=== PATIENT | male | born 1965 | race Caucasian/White ===

== ENCOUNTER 2025-03-09 04:49 | Emergency (ER) | payer SELFPAY ==
[2025-03-09] MEDS ORDERED: FOLIC ACID 5 MG/ML VIAL ONE (05:17)
[2025-03-09] MEDS ORDERED: MULTIVITAMINS 10 ML VIAL (INJ) IV ONE (05:17)
[2025-03-09] MEDS ORDERED: THIAMINE 200 MG/2 ML INJ ONE (05:17)
[2025-03-09] MEDS ORDERED: NA CHLORIDE 0.9% 1,000 ML ONE (05:18)
[2025-03-09 05:21] LABS: Absolute Lymphocytes (CBC) 1.9 K/uL (0.7-4.9); Hematocrit 42.5 % (39.6-49.0); Hemoglobin 14.7 g/dL (13.6-17.9); MCH 33.1 pg (27.0-35.0); MCHC 34.5 g/dL (32.0-36.0); MCV 96.1 fL (80-100); MPV 7.5 fL (7.6-11.3); Nucleated RBC Absolute Count 0.0 (0-0); Nucleated Red Blood Cells % 0.2 % (0-0); RBC Red Blood Cell Count 4.42 M/uL (4.33-5.43); White Blood Count 3.70 thou/uL (4.3-10.9)
[2025-03-09 05:32] LABS: PT Prothrombin Time 10.9 SECONDS (10-13.0); PTT, Activated Partial Thromb 27.1 SECONDS (27.2-37.4); Protime INR 0.96
[2025-03-09 05:42] LABS: ALT/SGPT 61 U/L (16-61); AST/SGOT 54 U/L (15-37); Albumin 3.5 g/dL (3.4-5.0); Albumin/Globulin Ratio 0.8 (1.1-1.8); Alkaline Phosphatase 61 U/L (45-117); Anion Gap 8.1 mEq/L (5.0-15.0); BUN Blood Urea Nitrogen 7 mg/dL (7-18); Bilirubin Indirect, Calculated 0.3 mg/dL (0.2-0.8); Globulin 4.6 g/dL (2.3-3.5); Glucose Level 94 mg/dL (74-106); Lipase 70 U/L (13-75); NT PRO-BNP 167 pg/mL (<125); Potassium 3.1 mEq/L (3.5-5.1); Troponin High Sensitivity 16.6 pg/mL (<58.9)
[2025-03-09 05:57] LABS: Blood Morphology Comment NOT SEEN (NOT SEEN); Differential Total Cells Count 100; Segmented Neutrophils 29 % (40-80)
[2025-03-09] MEDS ORDERED: ONDANSETRON 4 MG/2 ML VIAL ONE (06:02)
[2025-03-09] MEDS ORDERED: MORPHINE 4 MG/ML SYR ONE (06:03)
--- NOTE | 2025-03-09 07:08 | RAD REPORT ---
EXAM: Angio Aorta For Dissection HISTORY: [facility] MAIN none chest pain Bed Name: 15 COMPARISON: None TECHNIQUE: Multiple contiguous axial images were obtained a CTA of the chest and abdomen with contras t per aortic dissection protocol. Sagittal and coronal 3-D MIP reformats were performed. One or more of the following dose reduction techniques were used: Automated exposure control, adjustment of the mA and kV according to patient size, and iterative reconstruction. Unless otherwise specified, incidental findings do not require dedicated imaging follow-up. FINDINGS: PULMONARY ARTERIES: Normal in caliber without filling defects to suggest pulmonary emboli. MEDIASTINUM: No hilar or mediastinal lymphadenopathy. LUNGS: No focal infiltrates or masses. PLEURAL SPACE: No pleural effusion or pneumothorax. LIVER: Unremarkable. KIDNEYS: Unremarkable. SPLEEN: Unremarkable. PANCREAS: Unremarkable. BOWEL: Colonic diverticulosis predominantly along the sigmoid, without acute diverticulitis. RETROPERITONEUM: No lymphadenopathy BONES: Degenerative changes in the spine. ASCENDING THORACIC AORTA: Normal caliber without evidence of dissection or aneurysmal dilatation. DESCENDING THORACIC AORTA: Normal caliber without evidence of dissection or aneurysmal dilatation. ABDOMINAL AORTA: Normal caliber without evidence of dissection or aneurysmal dilatation. Up to moderate mixed density plaque throughout the aorta most pronounced along the infrarenal abdomin al aorta. Patent, although with multifocal mild narrowing along the right more than left iliac vessels. CELIAC TRUNK: Patent. SMA: Patent DANNY: Patent RENAL ARTERIES: Bilateral single renal arteries without significant atherosclerotic disease IMPRESSION: No evidence of thoracic or abdominal aortic aneurysm or dissection. Other findings as above.
[2025-03-09] MEDS ORDERED: POTASSIUM CL SA 10 MEQ TAB PO ONE (07:24)
--- NOTE | 2025-03-09 07:49 | EDPHYS ---
Physician Documentation [facility] Name: Khris Joyner Age: 59 yrs Sex: Male : 1965 Arrival Date: 03/09/2025 Time: 04:49 Bed 15 Private MD: ED Physician Wan Kerns HPI: 03/09 05:06 This 59 yrs old Male presents to ER via Unassigned with complaints of sp4 intoxication, chest pain . 06:13 ED is 59-year-old male who presents with 1 week of squeezing with radiation into his sp4 back midsternal chest pains. Patient reports daily chest pain squeezing in nature associated with dyspnea. No vomiting or fever. Patient reports heavy alcohol use sixpack of beer daily supplemented with some whiskey. Reports some vertigo as well. Reports daily alcohol consumption for several years. Patient reports smoking half a pack a day for the past 46 years. Patient also reports using some vapes. No history of major health problems. No medications on daily basis.. Historical: - Allergies: 05:00 No Known Allergies; vc1 - Home Meds: 05:00 None [Active]; vc1 - PMHx: 05:00 None; vc1 - PSHx: 05:00 None; vc1 - Immunization history:: Adult Immunizations not up to date. - Infectious Disease History:: Denies. - Social history:: Smoking status: Patient reports the use of cigarette tobacco products, smokes one-half pack cigarettes per day, Reported history of juuling and/or vaping. - Family history:: not pertinent. ROS: 06:13 Constitutional: Negative for fever, chills, and weight loss, positive for chest pain, sp4 positive for alcohol abuse, positive for dyspnea, positive for vertigo 06:13 All other systems are negative, Exam: 06:13 Constitutional: This is a well developed, well nourished patient who is awake, sp4 moderately intoxicated male Head/Face: Normocephalic, atraumatic. There is facial plethora Eyes: Pupils equal round and reactive to light, extra-ocular motions intact. Lids and lashes normal. Conjunctiva and sclera are not injected. Cornea within normal limits. Periorbital areas with no swelling, redness, or edema. ENT: Nares patent. No nasal discharge, no septal abnormalities noted. Tympanic membranes are normal and external auditory canals are clear. Oropharynx with no redness, swelling, or masses, exudates, or evidence of obstruction, uvula midline. Mucous membranes moist. Neck: Trachea midline, no thyromegaly or masses palpated, and no cervical lymphadenopathy. Supple, full range of motion without nuchal rigidity, or vertebral point tenderness. Chest/axilla: Normal chest wall appearance and motion. Nontender with no deformity. No lesions are appreciated. Cardiovascular: Regular rate and rhythm with a normal S1 and S2. No gallops, murmurs, or rubs. No pulse deficits. Respiratory: Lungs have equal breath sounds bilaterally, clear to auscultation and percussion. No rales, rhonchi or wheezes noted. No increased work of breathing, no retractions or nasal flaring. Abdomen/GI: Soft, with normal bowel sounds. No distension or tympany. No guarding or rebound. No evidence of tenderness throughout. Back: No spinal tenderness. No costovertebral tenderness. Skin: Warm, dry with normal turgor. Normal color with no rashes, no lesions, and no evidence of cellulitis. MS/ Extremity: Pulses equal, no cyanosis. Neurovascular intact. Full, normal range of motion. Neuro: Awake and alert, GCS 15, oriented to person, place, time, and situation. Cranial nerves II-XII grossly intact. Motor strength 5/5 in all extremities. Sensory grossly intact. Psych: Awake, alert, with orientation to person, place and time. Intoxicated with mostly lucid 06:13 ECG was reviewed by the Attending Physician. EKG at 0501 normal sinus rhythm rate 82, overall normal EKG Vital Signs: 05:00 BP 116 / 70; Pulse 82; Resp 25; Temp 98.4; Pulse Ox 97% ; Weight 58.97 kg; Height 5 ft. vc1 8 in. ; 06:10 BP 118 / 67; Pulse 78; Resp 22; Pulse Ox 100% ; cp4 07:31 BP 131 / 81; Pulse 76; Resp 16; Pulse Ox 99% ; bp 05:00 Body Mass Index 19.77 (58.97 kg, 172.72 cm) vc1 Shital Coma Score: 06:13 Eye Response: spontaneous(4). Motor Response: obeys commands(6). Verbal Response: sp4 oriented(5). Total: 15. MDM: 05:07 Medical Screening Exam initiated sp4 06:17 Differential diagnosis: acute pericarditis, anxiety, coronary artery disease sp4 esophagitis, gastritis, gastroesophageal reflux disease (GERD), hiatal hernia, stable angina, unstable angina. HEART Score: History: Slightly Suspicious (0), ECG: Normal (0), Age: > 45 and < 65 years (1), Risk Factors: 1 or 2 risk factors (1), [Active Smoker] [+ Family HX] Troponin: < or = 1 x Normal Limit (0), Total Score = 2. The patient was not given aspirin in the Emergency Department. Aspirin not given, patient refused. Data reviewed: vital signs, nurses notes, lab test result(s), EKG, radiologic studies, CT scan, plain films. 06:54 Transition of care: After a detail discussion of the patient's case, care is sp4 transferred to [facility]. 07:33 ED course: FINDINGS: PULMONARYARTERIES: Normal in caliber without filling defects to sp4 suggest pulmonary emboli. MEDIASTINUM: No hilar or mediastinal lymphadenopathy. LUNGS: No focal infiltrates or masses. PLEURAL SPACE: No pleural effusion or pneumothorax. LIVER: Unremarkable. KIDNEYS: Unremarkable. SPLEEN: Unremarkable. PANCREAS: Unremarkable. BOWEL: Colonic diverticulosis predominantly along the sigmoid, without acute diverticulitis. RETROPERITONEUM: No lymphadenopathy BONES: Degenerative changes in the spine. ASCENDING THORACIC AORTA: Normal caliber without evidence of dissection or aneurysmal dilatation. DESCENDING THORACIC AORTA: Normal caliber without evidence of dissection or aneurysmal dilatation. ABDOMINAL AORTA: Normal caliber without evidence of dissection or aneurysmal dilatation. Up to moderate mixed density plaque throughout the aorta most pronounced along the infrarenal abdominal aorta. Patent, although with multifocal mild narrowing along the right more than left iliac vessels. CELIAC TRUNK: Patent. SMA: Patent DANNY: Patent RENAL ARTERIES: Bilateral single renal arteries without significant atherosclerotic disease IMPRESSION: No evidence of thoracic or abdominal aortic aneurysm or dissection. Other findings as above.. 07:44 ED course: We have discussed with the patient the importance of alcohol cessation and sp4 attendance of rehab. . 03/09 05:07 Order name: Acetaminophen; Complete Time: 06:02 sp4 03/09 05:07 Order name: Basic Metabolic Panel; Complete Time: 06:02 sp4 03/09 05:07 Order name: CBC with Diff; Complete Time: 06:02 sp4 03/09 05:07 Order name: ETOH Level; Complete Time: 06:02 sp4 03/09 05:07 Order name: Hepatic Function; Complete Time: 06:02 sp4 03/09 05:07 Order name: PT-INR; Complete Time: 06:02 sp4 03/09 05:07 Order name: Ptt, Activated; Complete Time: 06:02 sp4 03/09 05:07 Order name: Salicylate; Complete Time: 06:02 sp4 03/09 05:07 Order name: Troponin High Sensitivity; Complete Time: 06:02 sp4 03/09 05:07 Order name: BNP; Complete Time: 06:02 sp4 03/09 05:22 Order name: Creatine Phosphokinase; Complete Time: 06:02 EDMS 03/09 05:22 Order name: Lipase; Complete Time: 06:02 EDMS 03/09 05:38 Order name: Manual Differential; Complete Time: 06:02 EDMS 03/09 06:54 Order name: Troponin High Sensitivity; Complete Time: 20:11 sp4 03/09 06:02 Order name: CT Aorta for Dissection; Complete Time: 07:15 sp4 03/09 05:07 Order name: EKG - Nurse/Tech; Complete Time: 05:12 sp4 03/09 05:07 Order name: IV Saline Lock; Complete Time: 05:12 sp4 03/09 05:07 Order name: Labs collected and sent; Complete Time: 05:12 sp4 EC:01 Rate is 82 beats/min. Rhythm is regular, Normal Sinus Rhythm. QRS [place] is Normal. PA sp4 interval is normal. QRS interval is normal. QT interval is normal. No Q waves. T waves are Normal. No ST changes noted. Clinical impression: Normal ECG. Interpreted by me. Reviewed by me. Administered Medications: 05:22 Drug: Banana Bag - (Multivitamin IV 1 amp, NS 0.9% IV 1000 ml, Thiamine IV 100 mg, cp4 foLIC Acid IVPB 1 mg) IV at calculated rate once Route: IV; Rate: calculated rate; Site: right antecubital; 06:55 Follow up: IV Status: Completed infusion cp4 06:04 Drug: morphine IVP or IV 4 mg IVP once over 4 mins Route: IVP; Infused Over: 4 mins; cp4 Site: right antecubital; 08:07 Follow up: Response: No adverse reaction bp 06:04 Drug: Ondansetron IVP 4 mg IVP once; over 2 minutes Route: IVP; Site: right antecubital;cp4 06:55 Follow up: Response: No adverse reaction; Nausea is decreased cp4 06:55 Follow up: Response: No adverse reaction; Pain is decreased cp4 07:30 Drug: Potassium Chloride PO 40 mEq PO once Route: PO; bp 08:07 Follow up: Response: No adverse reaction bp Disposition: 07:44 Chart complete. sp4 Disposition Summary: 03/09/25 07:48 Discharge Ordered Notes: Location: Home sp4 Problem: new sp4 Symptoms: have improved sp4 Condition: Stable sp4 Diagnosis - Chest pain, unspecified sp4 - Acute noncardiac chest pain, sp4 - Alcohol dependence with intoxication, uncomplicated sp4 Followup: sp4 - With: Sabino Ochoa MD - When: 7 - 10 days - Reason: Recheck today's complaints Discharge Instructions: - Discharge Summary Sheet sp4 - Alcohol Abuse and Dependence Information, Adult sp4 Forms: - Patient Portal Instructions sp4 Prescriptions: - thiamine HCl (vitamin B1) 100 mg Oral tablet - take 1 tablet ORAL route daily; 30 tablet; Refills: 0, Product Selection sp4 Permitted - Folic Acid 1 mg Oral Tablet - take 1 tablet ORAL route once daily; 30 tablet; Refills: 0, Product Selection sp4 Permitted Signatures: Dispatcher [employer] EDImtiaz Bacon RN RN Otoniel Martinez DO DO ms3 Jacque Morales RN RN vc1 Wan Kerns MD MD sp4 Blanca Howard cp4 Corrections: (The following items were deleted from the chart) 05:07 05:07 ACETAMINOPHEN+C.LAB.BRZ ordered. EDMS EDMS 05:07 05:07 BASIC METABOLIC PANEL+C.LAB.BRZ ordered. EDMS EDMS 05:07 05:07 CBC+H.LAB.BRZ ordered. EDMS EDMS 05:07 05:07 ETHANOL+C.LAB.BRZ ordered. EDMS EDMS 05:07 05:07 HEPATIC FUNCTION+C.LAB.BRZ ordered. EDMS EDMS 05:07 05:07 PROTIME (+INR)+COAG.LAB.BRZ ordered. EDMS EDMS 05:07 05:07 PTT, ACTIVATED+COAG.LAB.BRZ ordered. EDMS EDMS 05:07 05:07 SALICYLATE+C.LAB.BRZ ordered. EDMS EDMS 05:07 05:07 URINE DRUG SCREEN+UC.LAB.BRZ ordered. EDMS EDMS 05:07 05:07 Troponin High Sensitivity+C.LAB.BRZ ordered. EDMS EDMS 05:07 05:07 PROBNP+C.LAB.BRZ ordered. EDMS EDMS 05:12 05:07 Suicide Screening ([place]) ordered. sp4 cp4 05:20 05:17 LIPASE+C.LAB.BRZ ordered. EDMS EDMS 05:20 05:17 CREATINE PHOSPHOKINASE+C.LAB.BRZ ordered. EDMS EDMS 06:02 06:02 Angio Aorta For Dissection+CT.RAD.BRZ ordered. EDMS EDMS
--- NOTE | 2025-03-09 07:49 | ER ---
Nurse's Notes [facility] Name: Khris Joyner Age: 59 yrs Sex: Male : 1965 Arrival Date: 03/09/2025 Time: 04:49 Bed 15 Private MD: Diagnosis: Chest pain, unspecified;Acute noncardiac chest pain,;Alcohol dependence with intoxication, uncomplicated Presentation: 03/09 05:00 Chief complaint: Patient states: chest pain since Friday that radiates down left arm vc1 with numbness to left arm. Coronavirus screen: Client denies travel out of the [place] in the last 14 days. At this time, the client does not indicate any symptoms associated with coronavirus-19. Ebola Screen: Patient negative for fever greater than or equal to 101.5 degrees Fahrenheit, and additional compatible Ebola Virus Disease symptoms Patient denies exposure to infectious person. Patient denies travel to an Ebola-affected area in the 21 days before illness onset. No symptoms or risks identified at this time. 05:00 Method Of Arrival: Ambulatory vc1 05:00 Initial Sepsis Screen: Does the patient meet any 2 criteria? No. Patient's initial vc1 sepsis screen is negative. Does the patient have a suspected source of infection? No. Patient's initial sepsis screen is negative. Risk Assessment: Do you want to hurt yourself or someone else? Patient reports no desire to harm self or others. Onset of symptoms was March 05, 2025. Care prior to arrival: None. Activity prior to arrival: None. 05:00 Acuity: PABLO 3 vc1 Historical: - Allergies: 05:00 No Known Allergies; vc1 - Home Meds: 05:00 None [Active]; vc1 - PMHx: 05:00 None; vc1 - PSHx: 05:00 None; vc1 - Immunization history:: Adult Immunizations not up to date. - Infectious Disease History:: Denies. - Social history:: Smoking status: Patient reports the use of cigarette tobacco products, smokes one-half pack cigarettes per day, Reported history of juuling and/or vaping. - Family history:: not pertinent. Screenin:00 [facility] ED Fall Risk Assessment (Adult) History of falling in the last 3 months, vc1 including since admission Yes- physiologic fall (2 pts) Confusion or Disorientation No (0 pts) Intoxicated or Sedated Yes (3 pts) Impaired Gait No (0 pts) Mobility Assist Device Used No (0 pt) Altered Elimination No (0 pt) Score/Fall Risk Level 3 or more points = High Risk Oriented to surroundings, Maintained a safe environment, Educated pt \T\ family on fall prevention, incl call for assistance when getting out of bed, Assessed \T\ reinforced patient's understanding of fall precautions, Provided non-skid footwear, Hourly rounding (assess needs \T\ fall precautionary measures) done. Abuse screen: Denies threats or abuse. Nutritional screening: No deficits noted. Tuberculosis screening: No symptoms or risk factors identified. Assessment: 05:10 General: Appears in no apparent distress. comfortable, Behavior is calm, cooperative, cp4 appropriate for age. 05:10 Pain: Complains of pain in chest Pain does not radiate. Pain currently is 7 out of 10 cp4 on a pain scale. Pain began 2-3 days ago. Neuro: Level of Consciousness is awake, alert, obeys commands, Oriented to person, place, time, situation. Cardiovascular: Patient's skin is warm and dry. Rhythm is sinus rhythm. Respiratory: Airway is patent Respiratory effort is even, unlabored. GI: No signs and/or symptoms were reported involving the gastrointestinal system. : No signs and/or symptoms were reported regarding the genitourinary system. EENT: No signs and/or symptoms were reported regarding the EENT system. Derm: No signs and/or symptoms reported regarding the dermatologic system. Musculoskeletal: No signs and/or symptoms reported regarding the musculoskeletal system. 06:15 Reassessment: Patient appears in no apparent distress at this time. Patient and/or cp4 family updated on plan of care and expected duration. Pain level reassessed. Patient is alert, oriented x 3, equal unlabored respirations, skin warm/dry/pink. Vital Signs: 05:00 BP 116 / 70; Pulse 82; Resp 25; Temp 98.4; Pulse Ox 97% ; Weight 58.97 kg; Height 5 ft. vc1 8 in. ; 06:10 BP 118 / 67; Pulse 78; Resp 22; Pulse Ox 100% ; cp4 07:31 BP 131 / 81; Pulse 76; Resp 16; Pulse Ox 99% ; bp 05:00 Body Mass Index 19.77 (58.97 kg, 172.72 cm) vc1 Shital Coma Score: 06:13 Eye Response: spontaneous(4). Motor Response: obeys commands(6). Verbal Response: sp4 oriented(5). Total: 15. ED Course: 04:59 Patient arrived in ED. vk 05:00 Patient has correct armband on for positive identification. Bed in low position. Call vc1 light in reach. Provided Education on: Plan of care. hall monitor on. Pulse ox on. NIBP on. 05:05 Wan Kerns MD is Attending Physician. sp4 05:23 No provider procedures requiring assistance completed. Initial lab(s) drawn, by ED cp4 staff, sent to lab. Inserted saline lock: 20 gauge in right antecubital area, using aseptic technique. Blood collected. Flushed with 10 mL NS. Patient maintains SpO2 saturation greater than 95% on room air. 05:36 Triage completed. vc1 05:37 Arm band placed on right wrist. vc1 06:38 Blanca Howard is Primary Nurse. cp4 06:45 CT Aorta for Dissection In Process Unspecified. EDMS 07:04 Primary Nurse role handed off by Blanca Howard bp 07:04 Imtiaz Bull, RN is Primary Nurse. bp 07:30 Troponin High Sensitivity Sent. bp 07:47 Sabino Ochoa MD is Referral Physician. sp4 08:07 IV discontinued, intact, bleeding controlled, No redness/swelling at site. Pressure bp dressing applied. Administered Medications: 05:22 Drug: Banana Bag - (Multivitamin IV 1 amp, NS 0.9% IV 1000 ml, Thiamine IV 100 mg, cp4 foLIC Acid IVPB 1 mg) IV at calculated rate once Route: IV; Rate: calculated rate; Site: right antecubital; 06:55 Follow up: IV Status: Completed infusion cp4 06:04 Drug: morphine IVP or IV 4 mg IVP once over 4 mins Route: IVP; Infused Over: 4 mins; cp4 Site: right antecubital; 08:07 Follow up: Response: No adverse reaction bp 06:04 Drug: Ondansetron IVP 4 mg IVP once; over 2 minutes Route: IVP; Site: right antecubital;cp4 06:55 Follow up: Response: No adverse reaction; Nausea is decreased cp4 06:55 Follow up: Response: No adverse reaction; Pain is decreased cp4 07:30 Drug: Potassium Chloride PO 40 mEq PO once Route: PO; bp 08:07 Follow up: Response: No adverse reaction bp Medication: 06:39 VIS not applicable for this client. cp4 Outcome: 07:48 Discharge ordered by . sp4 08:07 Discharged to home ambulatory, bp 08:07 Condition: stable 08:07 Discharge instructions given to patient, Instructed on discharge instructions, follow up and referral plans. medication usage, Demonstrated understanding of instructions, follow-up care, medications, Prescriptions given X 2, 08:08 Patient left the ED. bp Signatures: Dispatcher [employer] EDMS Imtiaz Bull RN RN bp Jacque Morales RN RN vc1 Wan Kerns MD MD sp4 Blanca Howard cp4 Eusebia Amezquita
[2025-03-09 08:33] VITALS: TEMP 98.4
[2025-03-09 08:36] VITALS: BP 131/81; O2SAT 99
== END 2025-03-09 08:08 | disposition home or self-care (01) ==
LOC: ER 04:49
DX: R07.89 Other chest pain (principal); F10.229 Alcohol dependence with intoxication, unspecified; F17.210 Nicotine dependence, cigarettes, uncomplicated
CPT/HCPCS: 36415; 71275; 74175; 80048; 80076; 80143; 80179; 82077; 82550; 83690; 83880; 84484; 85025; 85610; 85730; 93005; 96365; 96366; 96375; 99285; J2405; J3411; J7030; Q9967